=== PATIENT | male | born 1960 | race Caucasian/White ===

== ENCOUNTER 2017-12-01 05:58 | Emergency (ER) | payer OTHER ==
[~2017-12-01 05:58] MED LIST: AMLO10 PO; ASPI81 TUBE; ATOR40TA49 PO; CEFU1TAB43 PO; CLAR10TA7 PO; CLON.1 PO; FLAG500T PO; FURO1TAB93 PO; KCL20 PO; LISI20 PO; METO100 TUBE; TAB-TAB PO; [UNRECOGNIZED DRUG - CODE] LEFT EYE
--- NOTE | 2017-12-01 06:18 | PD ---
HPI Chief Complaint: Cardiopulmonary arrest Time Seen by Provider: 06:02 Travel History International Travel<30 days: No Contact w/Intl Traveler<30days: No Traveled to known affect area: No History of Present Illness HPI The patient is a 57-year-old male with a history of ischemic CVA, congestive heart failure, brain bleed and hypertension and morbid obesity who, according to the and [facility], complained of shortness of breath. The patient had already gotten into a car for a fishing trip when he became unconscious. When [facility] arrived shortly after the called the patient was unconscious without a pulse. ACLS protocol was practiced for over 30 minutes before he came into the emergency department. The initial rhythm noted by [facility] was asystole. Later , the patient went into PEA according [facility] personnel. When the patient arrived here he was in agonal rhythm. His extremities were blue and he had no pulse or respiratory effort. When the patient was intubated foam came out of the endotracheal tube. PFSH Past Medical History Asthma: No Heart Rhythm Problems: No Cancer: No Cardiovascular Problems: No High Cholesterol: No Chest Pain: No Congestive Heart Failure: No COPD: No Diabetes: No Endocrine: No Genitourinary: No Hepatitis: No Hiatal Hernia: No Hypertension: Yes Immune Disorder: No Musculoskeletal: No Neurologic: Yes (STROKE 2010, AV SHUNT PLACED 2010) Psychiatric: No Reproductive: No Respiratory: Yes (SLEEP APNEA, WEARS CPAP) Sleep Apnea: Yes Thyroid Disease: No Past Surgical History Abdominal Surgery: No AICD: No Cardiac Surgery: No Ear Surgery: No Endocrine Surgery: No Eye Surgery: Yes (R EYE CATARACT SURGERY 2010) Genitourinary Surgery: No Gynecologic Surgery: No Joint Replacement: No Oral Surgery: No Pacemaker: No Thoracic Surgery: No Social History Alcohol Use: No Tobacco Use: No Substance Use: No Allergies-Medications (Allergen,Severity, Reaction): Coded Allergies: No Known Allergies (Verified , 04/12/14) Reported Meds & Prescriptions Reported Meds & Active Scripts Active Flagyl (Metronidazole) 500 Mg Tab 500 Mg PO Q8H Ceftin 500 Mg Tab (Cefuroxime Axetil) 500 Mg Tab 500 Mg PO BID Kcl 20 Meq Tab (Potassium Chloride) 20 Meq Tabcr 20 Meq PO DAILY Vigamox (Moxifloxacin HCl) 60 Drop/3 Ml Soln 1 Drop LEFT EYE QID Metoprolol Tartrate 100 Mg Tab 100 Mg TUBE Q12 Prinivil 20 Mg Tab (Lisinopril) 20 Mg Tab 20 Mg PO Q12 Furosemide 40 Mg Tab 40 Mg PO DAILY Catapres (Clonidine HCl) 0.1 Mg Tab 0.1 Mg PO 3 TIMES A DAY 30 Days Lipitor 40 Mg Tab (Atorvastatin Calcium) 40 Mg Tab 40 Mg PO DAILY Aspirin Low Strength (Aspirin) 81 Mg Chew 81 Mg TUBE DAILY Norvasc (Amlodipine Besylate) 10 Mg Tab 10 Mg PO DAILY Reported Claritin (Loratadine) 10 Mg Tab 10 Mg PO DAILY PRN Multivitamin (Multivitamins) 1 Tab Tab 1 Tab PO DAILY Review of Systems ROS Limitations: Unresponsive Physical Exam Narrative GENERAL: The patient is morbidly obese, comatose with dusky/blue extremities and no respiratory effort and no pulses. Endotracheal tube is present. Slightly bloody foam comes out of the endotracheal tube. Endotracheal tube is 24 at the lips with a 7.5 endotracheal tube SKIN: Focused skin assessment cool, dusky extremities HEAD: Atraumatic. Normocephalic. EYES: Pupils fixed and dilated at 3 mm with disconjugate gaze ENT: No nasal bleeding NECK: Trachea midline. No JVD. CARDIOVASCULAR: No cardiac rhythm is noted RESPIRATORY: There is no respiratory effort, breath sounds diminished with bagging but present on both sides. Endotracheal tube appears to be in good position GASTROINTESTINAL: Abdomen slightly distended, the patient is morbidly obese MUSCULOSKELETAL: No obvious deformities. No clubbing, there appears to be slight cyanosis. There is 2+ bilateral lower extremity edema. No movement. NEUROLOGICAL: No movement no neurological activity apparent. MDM Medical Decision Making Medical Screen Exam Complete: Yes Emergency Medical Condition: Yes Medical Record Reviewed: Yes Differential Diagnosis Congestive heart failure, pulmonary edema, acute coronary syndrome sudden cardiac Narrative Course The patient appears to have had pulmonary edema. His initial symptoms were shortness of breath. When he was intubated phone came out of the endotracheal tube. He does have extremity edema bilaterally. The patient had been undergoing CPR for about 30 minutes by the time he came to the emergency department. At no time was there a pulse or respiratory effort. Ultrasound done by myself showed no cardiac movement. The resuscitative efforts were ultimately terminated at 559 this morning. The sequence of events were likely congestive heart failure leading to pulmonary edema, ultimate hypoxemia and cardiac . Diagnosis Primary Impression: Sudden cardiac Additional Impressions: Acute pulmonary edema Acute systolic CHF (congestive heart failure) Disposition: 20 Condition: Hollis Germain MD Dec 01, 2017 06:18
== END 2017-12-01 08:10 | disposition expired ==
LOC: PHED 05:58
DX: I46.9 Cardiac arrest, cause unspecified (principal); I11.0 Hypertensive heart disease with heart failure; I50.9 Heart failure, unspecified; E66.01 Morbid (severe) obesity due to excess calories; G47.30 Sleep apnea, unspecified; Z86.73 Personal history of transient ischemic attack (TIA), and cerebral infarction without residual deficits; Z79.82 Long term (current) use of aspirin; Z79.899 Other long term (current) drug therapy
CPT/HCPCS: 99283